=== PATIENT | female | born 1990 | race Caucasian/White ===

== ENCOUNTER 2019-12-25 16:49 | Inpatient (IN) | payer BC ==
[~2019-12-25 16:49] MED LIST: Bupivacaine 0.25% 10 ML SDV ONE
[2019-12-25] MEDS ORDERED: Ondansetron 4 MG/2 ML SDV IVPUSH PRN (19:16)
[2019-12-25] MEDS ORDERED: Lidocaine 1% 50 ML MDV INJECT ONE (19:16)
[2019-12-25] MEDS ORDERED: Sodium Chloride 0.9% 10 ML Syringe FLUSH PRN (19:16)
[2019-12-25] MEDS ORDERED: Lactated Ringers 1,000 ML ONE (19:17)
[2019-12-25] MEDS ORDERED: Oxytocin/Lactated Ringers 10 UNIT/1,000 ML BAG IV SCH ×2 (19:30)
--- NOTE | 2019-12-25 20:04 | PCM.LDHP ---
L&D History of Present Illness - General Date of Service: 12/25/19 Admit Problem/Dx: Patient Status Order with Admit Dx/Problem 12/25/19 16:58 Patient Status [ADT] Routine 12/25/19 19:17 Patient Status [ADT] Routine Admission Diagnosis/Problem Admission Diagnosis/Problem Source of Information: Patient History Limitations: Reports: No Limitations - History of Present Illness Introduction:: Qiana is a 29-year-old 2 para 0101 white female who is presently at 39- 0/7 weeks gestational age with an LUZ of 01/01/2020 is admitted to labor and delivery in early labor with cervical change and contractions occurring every 2- 4 minutes. She reports contractions started this a.m. at approximately 1000 hrs. They have increased to every 2-4 minutes, mild to moderate intensity noted. Increased cervical mucus production and feels she lost her cervical mucous plug. She is not having any vaginal bleeding, loss of vaginal fluid. She does report good activity. I evaluation clinic patients was noted to have a reactive nonstress test and a negative contraction stress test. Contractions are noted be every 2-4 minutes. They're mild in nature. Cervixwas 2 cm dilated, 90% effaced, -3 station but with head well applied to the cervix. It was mid position. In labor and delivery patient underwent artificial rupture membranes was very light meconium stained amniotic fluid. No particulate matter was noted. heart tones are very reassuring. MEDICAL PLANNER history: Patient is 2 para 0101. Patient had menarche at age 10. Cycles every 28 days. Patient reported monthly menstrual cycles with an LMP of . Her last menstrual period was the dating parameter for having occurred on 03/27/2019 and being relatively certain without any use of control pills. This was supported by 3 ultrasounds done during the course of on 08/14/2019, 09/12/2019 and on 10/04/2019. Her course was relatively unremarkable. Patient had a previous section done for severe preeclampsia. This is done at [facility] in [place]. She delivered on 12/15/2016 at 35 weeks gestational age after 8 hours of labor. She delivered a 5 lbs. 5 oz. female by primary section. done for breech presentation and initial labor was induced because of severe preeclampsia. history: Patient was initially seen for this at 10 weeks gestational age on 06/05/2019. She is seen on a regular basis during course the . Initial weight was 242 pounds and final weight was 260 pounds. This for an 18 pound weight gain. Her vital signs remained stable throughout the course. Fundal height growth was within normal limits. Patient desires an epidural. She desires a trial of labor after section for vaginal after section attempt. She is group B strep negative. She did have an induction scheduled for 01/01/2020. She declined genetic testing. Her 1 hour GTT was within normal limits at 102 mg/dL. She has a history of low transverse incision per her operative report. Patient has history of depression with her last and was on medication for that. She is also hypothyroid and is on levothyroxine placement. She has taken baby aspirin 81 mg by mouth daily during the entire . She does have some symptoms of irritable bowel syndrome. She is Rh- and did have RhoGAM given to her at her second trimester laboratory visit. laboratory testing shows blood to be a negative with a negative and by screen. First hemoglobin was 13.6 g/dL with platelets of 301,000. She is rubella immune. RPR is nonreactive. Hepatitis B surface antigen and HIV assays were both negative. Chlamydia and gonorrhea were both negative. First visit her TSH was normal at 1.6-7. Her 16 week 1 hour GTT was normal at 102 mg/dL. Her second trimester hemoglobin 11.9 g/dL. Her 1 hour GTT at second trimester was 90. Follow-up CBC on 11/21/2019 showed a hemoglobin 11.8 and platelets of 292,000. Her group B strep screen was negative.A third trimester TSH was normal at 1.651 and her free T4 was normal at 0.87. Allergies: None Medications: 1. vitamins 1 daily 2. Baby aspirin 81 mg daily 3. Levothyroxine 50 g orally daily Past medical history: 1. History of recurrent STI's 2. History of anxiety and depression on medications at that time. 3. Hypothyroidism on medications and clinically and laboratory euthyroid 4. History of irritable bowel syndrome managed well during this 5. labor and history of preeclampsia with her last . Past surgical history: 1. Partial thyroidectomy 2. Primary section with last for breech presentation Family history: Father is secondary from liver and colon cancer at age 58. Mother is alive and well. 2 brothers are alive. Maternal grandmother is alive, healthy, with hypothyroidism. Maternal grandfather , CVA at age 70. Paternal grandmother and paternal grandfather history is unknown. No anesthesia, bleeding, blood clotting, allergy related problems in the family. Social history: Patient is . 's Eric. 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 She is a college graduate. She does not use any significant most alcohol, drugs or tobacco. Review of systems: In general patient has no complaints. She is reporting some contractions but they're mild and manageable at this time. Some increased mucus discharge. Baby has been active. Skin: Negative Lungs: No infectious symptoms or shortness of breath Cardiovascular: No chest pain or exercise intolerance Breasts: Changes associated . Patient plans to breast-feed.. GI: Negative : Changes associated . Musculoskeletal: Negative Neurological: Negative In general the patient is well-developed, well-nourished, pleasant female of stated age in no acute distress. She is reporting contractions but these are not causing her any distress. Vital signs: On last evaluation in clinic today blood pressure is 134/76. Weight was 260 pounds. heart rate is 155. Pregravid weight was 242 pounds. Height is 5 feet 7 pounds. Prepregnancy body mass index is 36 Skin is warm dry without lesions. HEENT, neck and back within normal limits. Lungs are clear with good breath sounds in all lung [place]. Cardiovascular exam shows regular and rhythm without murmurs. Breast exam is deferred today have been done at first medical visit and found to be normal. Patient does plan to breast-feed. Abdomen is gravid and protuberant with fundal height of 41 cm. AB in vertex presentation by Jorge hours and by cervical exam. Genital exam as per digital exam outlined in the history present illness. Extremities and neurological exam are grossly within normal limits. - Related Data Allergies/Adverse Reactions: Allergies Allergy/AdvReac Type Severity Reaction Status Date / Time No Known Allergies Allergy Verified 12/15/16 03:34 Past Medical History Endocrine/Metabolic History: Reports: Hypothyroidism, Obesity/BMI 30+ - Past Surgical History Endocrine Surgical History: Reports: Thyroidectomy Social & Family History - Family History Oncologic: Reports: Colon (father) - Living Situation & Occupation Living situation: Reports: Occupation: Employed H&P Review of Systems - Review of Systems: Review Of Systems: See Below L&D Exam - Exam Exam: See Below - Vital Signs Vital Signs: Last Vital Signs Temp 36.8 C 12/25/19 16:58 Pulse 91 12/25/19 16:58 Resp 17 12/25/19 16:58 BP 125/84 12/25/19 16:58 Pulse Ox Weight: 115.212 kg Problem List Initiated/Reviewed/Updated: Yes Orders Last 24hrs: Active Orders 24 hr Category Date Time Status Patient Status [ADT] Routine ADT 12/25/19 16:58 Active Patient Status [ADT] Routine ADT 12/25/19 19:17 Active Activity as Tolerated [RC] PFP Care 12/25/19 19:17 Active Communication Order [RC] ASDIRECTED Care 12/25/19 19:17 Active Heart Tones [RC] ASDIRECTED Care 12/25/19 19:17 Active Non Stress Test [RC] PER UNIT ROUTINE Care 12/25/19 16:58 Active Notify Provider [RC] PFP Care 12/25/19 19:17 Active Notify Provider [RC] PRN Care 12/25/19 19:17 Active Peripheral IV Care [RC] . DIRECTED Care 12/25/19 19:17 Active Pump Management, Intrathecal [RC] ASDIRECTED Care 12/25/19 19:18 Active Up ad Sabine [RC] ASDIRECTED Care 12/25/19 16:59 Active Urinary Catheter Assessment [RC] ASDIRECTED Care 12/25/19 19:16 Active Verify Patient Consent Obtain [RC] ASDIRECTED Care 12/25/19 19:21 Active Vital Signs [RC] PER UNIT ROUTINE Care 12/25/19 16:58 Active Vital Signs [RC] PER UNIT ROUTINE Care 12/25/19 19:17 Active Regular Diet [DIET] Diet 12/25/19 Breakfast Active Regular Diet [DIET] Diet 12/25/19 Dinner Active CBC WITH AUTO DIFF [HEME] Stat Lab 12/25/19 19:16 Ordered RAPID PLASMA REAGIN,RPR [CHEM] Routine Lab 12/25/19 19:17 Ordered TYPE AND SCREEN [BBK] Stat Lab 12/25/19 19:16 Ordered Lactated Ringers [Ringers, Lactated] 1,000 ml Med 12/25/19 19:30 Active IV ASDIRECTED Ondansetron [Zofran] Med 12/25/19 19:16 Active 4 mg IVPUSH Q4H PRN Oxytocin/Lactated Ringers [Pitocin in LR 10 Units/1,000 Med 12/25/19 19:30 Active ML] 10 unit in 1,000 ml IV .CONTINUOUS Oxytocin/Lactated Ringers [Pitocin in LR 10 Units/1,000 Med 12/25/19 19:30 Active ML] 10 unit in 1,000 ml IV TITRATE Sodium Chloride 0.9% [Saline Flush] Med 12/25/19 19:16 Active 10 ml FLUSH ASDIRECTED PRN Electronic Heart Tones Ext w TOCO [WOMSER] Oth 12/25/19 19:17 Ordered Routine Electronic Heart Tones Internal [WOMSER] Per Unit Oth 12/25/19 19:17 Ordered Routine Peripheral IV Insertion Adult [OM.PC] Routine Oth 12/25/19 19:17 Ordered Resuscitation Status Routine Resus Stat 12/25/19 16:58 Ordered Medication Orders Lactated Ringer's (Ringers, Lactated) 1,000 mls @ 100 mls/hr IV ASDIRECTED RUTHANN Oxytocin/Lactated Ringer's (Pitocin In Lr 10 Units/1,000 Ml) 10 unit in 1,000 mls @ 12 mls/hr IV TITRATE RUTHANN; Protocol Oxytocin/Lactated Ringer's (Pitocin In Lr 10 Units/1,000 Ml) 10 unit in 1,000 mls @ 100 mls/hr IV .CONTINUOUS RUTHANN; Protocol Ondansetron HCl (Zofran) 4 mg IVPUSH Q4H PRN PRN Reason: Nausea/Vomiting Sodium Chloride (Saline Flush) 10 ml FLUSH ASDIRECTED PRN PRN Reason: Keep Vein Open Assessment/Plan Comment:: 1. 39-0/7 week intrauterine , early active labor, cervical change. 2. Risk factors for include history of previous severe preeclampsia, history of section and desire for tolac for , history of depression/anxiety previously on meds after delivery, hypothyroidism on medications and clinically euthyroid 3. History of low transverse section desire for an attempt at trial labor after section for vaginal after section attempt. 4. Desires epidural in labor delivery 5. Plans to breast-feed. 6. Group B strep is negative. 7. Patient is received her flu shot on 07/13/2019 and her T dap on 10/31/2019. She is rubella immune. Plan: 1. Anticipate vaginal after section with a trial of labor. 2. Precautionary measures are put in place regarding including signing consent for trial labor after section for an attempt at vaginal after section, labs, near continuous monitoring in labor, alerting both anesthesia and surgery that candidate is in labor delivery. 3. Epidural when necessary for labor analgesia 4. CBC and platelet count along with RPR upon admission per protocol 5. Support breast-feeding decision
[2019-12-25] MEDS ORDERED: fentaNYL 100 MCG/2 ML SDV EPIDUR PRN (20:22)
[2019-12-25] MEDS ORDERED: ePHEDrine 50 MG/ML SDV IVPUSH PRN (20:22)
[2019-12-25] MEDS ORDERED: diphenhydrAMINE 50 MG/ML SDV IVPUSH PRN (20:22)
[2019-12-25] MEDS ORDERED: Bupivacaine/fentaNYL/NS 100 ML Bag EPIDUR PRN (20:22)
[2019-12-25] MEDS: Lactated Ringers 1,000 ML IV SCH ×2 (20:26→21:01)
--- NOTE | 2019-12-25 20:47 | PCM.PREANE ---
Preanesthetic Assessment - Procedure Proposed Procedure: scott - Anesthesia/Transfusion/Family Hx Anesthesia History: Prior Anesthesia Without Reaction Family History of Anesthesia Reaction: No Transfusion History: No Prior Transfusion(s) - Review of Systems General: No Symptoms Pulmonary: No Symptoms Cardiovascular: No Symptoms Gastrointestinal: No Symptoms Neurological: No Symptoms Other: Reports: Thyroid Problems, Anxiety (prepreg) - Physical Assessment Vital Signs: Last Vital Signs Temp 98.2 F 12/25/19 16:58 Pulse 91 12/25/19 16:58 Resp 17 12/25/19 16:58 BP 125/84 12/25/19 16:58 Pulse Ox Height: 5 ft 7 in Weight: 115.212 kg ASA Class: 2 Mental Status: Alert & Oriented x3 Airway Class: Mallampati = 1 Dentition: Reports: Normal Dentition Thyro-Mental Finger Breadths: 3 Mouth Opening Finger Breadths: 3 ROM/Head Extension: Full Lungs: Clear to Auscultation, Normal Respiratory Effort Cardiovascular: Regular Rate, Regular Rhythm, No Murmurs - Lab Values: Laboratory Last Values WBC 12.29 K/mm3 (3.98-10.04) H 12/25/19 19:44 RBC 4.31 M/mm3 (3.98-5.22) 12/25/19 19:44 Hgb 13.1 gm/dl (11.2-15.7) 12/25/19 19:44 Hct 39.1 % (34.1-44.9) 12/25/19 19:44 MCV 90.7 fl (79.4-94.8) 12/25/19 19:44 MCH 30.4 pg (25.6-32.2) 12/25/19 19:44 MCHC 33.5 g/dl (32.2-35.5) 12/25/19 19:44 RDW Std Deviation 44.9 fL (36.4-46.3) 12/25/19 19:44 Plt Count 320 K/mm3 (182-369) 12/25/19 19:44 MPV 9.4 fl (9.4-12.3) 12/25/19 19:44 Neut % (Auto) 76.0 % (34.0-71.1) H 12/25/19 19:44 Lymph % (Auto) 14.6 % (19.3-51.7) L 12/25/19 19:44 [place] % (Auto) 8.6 % (4.7-12.5) 12/25/19 19:44 Eos % (Auto) 0.2 (0.7-5.8) L 12/25/19 19:44 Baso % (Auto) 0.1 % (0.1-1.2) 12/25/19 19:44 Neut # (Auto) 9.33 K/mm3 (1.56-6.13) H 12/25/19 19:44 Lymph # (Auto) 1.80 K/mm3 (1.18-3.74) 12/25/19 19:44 [place] # (Auto) 1.06 K/mm3 (0.24-0.36) H 12/25/19 19:44 Eos # (Auto) 0.03 K/mm3 (0.04-0.36) L 12/25/19 19:44 Baso # (Auto) 0.01 K/mm3 (0.01-0.08) 12/25/19 19:44 - Allergies Allergies/Adverse Reactions: Allergies Allergy/AdvReac Type Severity Reaction Status Date / Time No Known Allergies Allergy Verified 12/25/19 20:24 - Blood Blood Available: No - Acknowledgements Anesthesia Type Planned: Epidural Pt an Appropriate Candidate for the Planned Anesthesia: Yes Alternatives and Risks of Anesthesia Discussed w Pt/Guardian: Yes Pt/Guardian Understands and Agrees with Anesthesia Plan: Yes PreAnesthesia Questionnaire Cardiovascular History: Reports: None Respiratory History: Reports: None Gastrointestinal History: Reports: GERD (with preg) EQUIPMENT PLANNER History: Reports: : 2 Para: 1 Psychiatric History: Reports: Anxiety (prepreg) Endocrine/Metabolic History: Reports: Hypothyroidism, Obesity/BMI 30+ Hematologic History: Reports: Anemia - Past Surgical History HEENT Surgical History: Reports: Oral Surgery Endocrine Surgical History: Reports: Thyroidectomy - SUBSTANCE USE Smoking Status *Q: Never Smoker Tobacco Use Within Last Twelve Months: No Second Hand Smoke Exposure: No Days Per Week of Alcohol Use: 0 Recreational Drug Use History: No - HOME MEDS Home Medications: Home Meds Aspirin 81 mg PO DAILY 12/25/19 [History] Levothyroxine [Synthroid] 50 mcg PO ACBREAKFAST 12/25/19 [History] Vit/FA/Fe Fumarate/Se [ MTR] 1 tab PO DAILY 12/25/19 [History] - CURRENT (IN HOUSE) MEDS Current Meds: Current Medications Diphenhydramine HCl (Benadryl) 25 mg IVPUSH Q6H PRN PRN Reason: pruritis Ephedrine Sulfate (Ephedrine Sulfate) 5 mg IVPUSH ASDIRECTED PRN PRN Reason: Hypotension Fentanyl (Sublimaze) 100 mcg EPIDUR Q3H PRN PRN Reason: Pain Last Admin: 12/25/19 20:28 Dose: 100 mcg Fentanyl/Bupivacaine HCl (Fentanyl/Bupivacaine/Ns 2 Mcg-0.125% 100 Ml) 100 ml EPIDUR ASDIRECTED PRN PRN Reason: Pain Last Admin: 12/25/19 20:36 Dose: 100 ml Lactated Ringer's (Ringers, Lactated) 1,000 mls @ 100 mls/hr IV ASDIRECTED RUTHANN Last Admin: 12/25/19 20:26 Dose: 100 mls/hr Oxytocin/Lactated Ringer's (Pitocin In Lr 10 Units/1,000 Ml) 10 unit in 1,000 mls @ 12 mls/hr IV TITRATE RUTHANN; Protocol Oxytocin/Lactated Ringer's (Pitocin In Lr 10 Units/1,000 Ml) 10 unit in 1,000 mls @ 100 mls/hr IV .CONTINUOUS RUTHANN; Protocol Ondansetron HCl (Zofran) 4 mg IVPUSH Q4H PRN PRN Reason: Nausea/Vomiting Sodium Chloride (Saline Flush) 10 ml FLUSH ASDIRECTED PRN PRN Reason: Keep Vein Open Discontinued Medications Lactated Ringer's (Ringers, Lactated) Confirm Administered Dose 1,000 mls @ as directed .ROUTE .STK-MED ONE Stop: 12/25/19 19:18 Lidocaine HCl (Xylocaine 1%) 50 ml INJECT ONETIME ONE Stop: 12/25/19 19:17
[2019-12-26] MEDS: Lactated Ringers 1,000 ML IV SCH (00:49)
--- NOTE | 2019-12-26 00:57 | PCM.SN ---
- Free Text/Narrative Note: Delivery note: Qiana is a 29-year-old 2 para 0101 white female who is presently at 39- 0/7 weeks gestational age with an LUZ of 01/01/2020 is admitted to labor and delivery in early labor with cervical change and contractions occurring every 2- 4 minutes. She reports contractions started this a.m. at approximately 1000 hrs. They have increased to every 2-4 minutes, mild to moderate intensity noted. Artificial rupture membranes was undertaken and the amniotic fluid was very mildly meconium stained. heart tones were very reassuring. She progressed rapidly in labor. She had an epidural for labor analgesia. At approximately 2315 hrs. patient became completely dilated and began pushing. At 0029 hours on 12/26/2019 she delivered a viable, moul[place], female infant with Apgars of 8 and 9, a length of 21.0 inches, a weight of 3730 g (8 lbs. 4 oz.) in a right occiput posterior position. Baby was completely delivered and placed on mom's abdomen. Nose and mouth were bulb suctioned. Cord was allowed to pulsate times approximately 2-3 minutes then was clamped 2 and cut by the baby's father Eric. Pitocin was started and run at 500 mL an hour to facilitate increase uterine tone and decrease likelihood of bleeding. The placenta delivered at 0037 hours in a Martinez presentation, appeared intact and complete and was discarded per patient desire. A second-degree perineal laceration was repaired with 3-0 Monocryl suture in routine fashion. Anesthesia was adequate with the labor epidural. Patient tolerated the procedure well. Estimated blood loss was 200 mL. Condition: Good. Patient plans to breast-feed.
[2019-12-26] MEDS ORDERED: Acetaminophen 325 MG Tab PO PRN (01:43)
[2019-12-26] MEDS ORDERED: Docusate Sodium 100 MG Cap PO PRN (01:43)
[2019-12-26] MEDS ORDERED: Witch Hazel Medicated Pads 40/Jar TOP PRN (01:43)
[2019-12-26] MEDS ORDERED: Benzocaine/Menthol 20%-0.5% Spray 56 GM Canister TOP PRN (01:43)
--- NOTE | 2019-12-26 06:53 | PCM.SN ---
- Free Text/Narrative Note: note: Patient is doing well in the period. Minimal lochia, voiding well, ambulated without problems. Nursing without concerns. Patient is afebrile, vital signs are stable Abdomen is flat, soft, uterus is below the umbilicus and is firm and nontender. Legs are nontender. Assessment: recovery going well. Plan: Routine care. Patient be discharged home within the next 24-48 hours.
--- NOTE | 2019-12-26 07:41 | PCM48HPAN ---
Post Anesthesia Note - EVALUATION WITHIN 48HRS OF ANESTHETIC Vital Signs in Normal Range: Yes Patient Participated in Evaluation: Yes Respiratory Function Stable: Yes Airway Patent: Yes Cardiovascular Function Stable: Yes Hydration Status Stable: Yes Pain Control Satisfactory: Yes Nausea and Vomiting Control Satisfactory: Yes Mental Status Recovered: Yes Vital Signs: Last Vital Signs Temp 36.8 C 12/25/19 16:58 Pulse 91 12/25/19 16:58 Resp 17 12/25/19 16:58 BP 125/84 12/25/19 16:58 Pulse Ox
[2019-12-26] MEDS: Levothyroxine 50 MCG Tab PO SCH (07:43)
[2019-12-26] MEDS: Ibuprofen 600 MG Tab PO PRN (12:32)
[2019-12-27] MEDS: Levothyroxine 50 MCG Tab PO SCH (06:39)
--- NOTE | 2019-12-27 08:27 | PCM.SN ---
- Free Text/Narrative Note: day #1.: Patient is doing well in the period. Minimal lochia, voiding well, ambulated without problems. Nursing without concerns. Patient is afebrile, vital signs are stable Abdomen is flat, soft, uterus is below the umbilicus and is firm and nontender. uterus is at the umbilicus or just below. Legs are nontender. Assessment: recovery going well. Plan: Routine care. Patient be discharged home within the next 24-48 hours.
[2019-12-27 10:07] VITALS: BP 119/73; PULSE 77
--- NOTE | 2019-12-27 12:37 | PCM.DCSUM1 ---
Discharge Summary - Hospital Course Free Text/Narrative:: Qiana is a 29-year-old 2 para 0101 white female who is presently at 39- 0/7 weeks gestational age with an LUZ of 01/01/2021 is admitted to labor and delivery in early labor with cervical change and contractions occurring every 2- 4 minutes. She reports contractions started this a.m. at approximately 1000 hrs. They have increased to every 2-4 minutes, mild to moderate intensity noted. Artificial rupture membranes was undertaken and the amniotic fluid was very mildly meconium stained. heart tones were very reassuring. She progressed rapidly in labor. She had an epidural for labor analgesia. At approximately 2315 hrs. patient became completely dilated and began pushing. At 0029 hours on 12/26/2019 she delivered a viable, moulton, female infant with Apgars of 8 and 9, a length of 21.0 inches, a weight of 3730 g (8 lbs. 4 oz.) in a right occiput posterior position. Baby was completely delivered and placed on mom's abdomen. Nose and mouth were bulb suctioned. Cord was allowed to pulsate times approximately 2-3 minutes then was clamped 2 and cut by the baby's father Eric. Pitocin was started and run at 500 mL an hour to facilitate increase uterine tone and decrease likelihood of bleeding. The placenta delivered at 0037 hours in a Martinez presentation, appeared intact and complete and was discarded per patient desire. A second-degree perineal laceration was repaired with 3-0 Monocryl suture in routine fashion. Anesthesia was adequate with the labor epidural. Patient tolerated the procedure well. Estimated blood loss was 200 mL. patient was done well. She is ambulating well, has minimal lochia, is nursing well and voiding without problems. Is ready for discharge home. Condition: Good. Diagnosis: Stroke: No - Discharge Data Discharge Date: 12/27/19 Discharge Disposition: Home, Self-Care 01 Condition: Good - Referral to Home Health Primary Care Physician: Baldev Otto MD - Patient Instructions Diet: Regular Diet as Tolerated (Nursing diet with increased calories and calcium as recommended) Activity: As Tolerated (No intercourse or tampons until bleeding resolves) Driving: May Drive Today Showering/Bathing: May Shower (May take a bath) Notify Provider of: Fever, Increased Pain, Swelling and Redness, Nausea and/or Vomiting - Discharge Plan Home Medications: Home Meds Levothyroxine [Synthroid] 50 mcg PO ACBREAKFAST 12/25/19 [History] Vit/FA/Fe Fumarate/Se [ MTR] 1 tab PO DAILY 12/25/19 [History] Acetaminophen [Tylenol] 650 mg PO Q4H PRN tablet 12/27/19 [Rx] Ibuprofen [Motrin] 600 mg PO Q4H PRN tablet 12/27/19 [Rx] Referrals: Baldev Otto MD [Primary Care Provider] - (Return to clinicDr. Otto2 weeks.) - Discharge Summary/Plan Comment DC Time >30 min.: No Discharge Summary/Plan Comment: Discharge instructions: 1. Discharge home 2. Diet, activity and follow-up discussed with patient. Recommend nursing diet with increased calories and calcium. 3. Precautions given concern increased pain, bleeding, temperature, signs/ symptoms of DVT/PE. 4. Medications per home medication was printed, discussed with and given to the patient. 5. Return to clinic-Dr. Otto or Symone stoll, nurse practitioner-[facility] in 2 weeks. Diagnosis: Term [id number] Condition: Good - Patient Data Vitals - Most Recent: Last Vital Signs Temp 37.1 C 12/27/19 08:48 Pulse 77 12/27/19 08:48 Resp 18 12/27/19 08:48 BP 119/73 12/27/19 08:48 Pulse Ox 97 12/27/19 08:48 Weight - Most Recent: 115.212 kg I&O - Last 24 hours: Intake & Output 12/26/19 12/27/19 12/27/19 22:59 06:59 14:59 Intake Total 120 Balance 120 Lab Results - Last 24 hrs: Laboratory Results - last 24 hr 12/25/19 Range/Units 19:44 RPR Non-reactive (NONREACTIVE) Med Orders - Current: Current Medications Acetaminophen (Tylenol) 650 mg PO Q4H PRN PRN Reason: mild pain or fever Benzocaine/Menthol (Dermoplast Pain Relief [place]) 0 gm TOP ASDIRECTED PRN PRN Reason: Perineal Comfort Measure Last Admin: 12/26/19 02:00 Dose: 1 can Docusate Sodium (Colace) 100 mg PO BID PRN PRN Reason: Constipation Ibuprofen (Motrin) 600 mg PO Q4H PRN PRN Reason: Mild pain or fever Last Admin: 12/26/19 12:32 Dose: 600 mg Levothyroxine Sodium (Synthroid) 50 mcg PO ACBREAKFAST RUTHANN Last Admin: 12/27/19 06:39 Dose: 50 mcg Witch Susan (Tucks) 1 pad TOP ASDIRECTED PRN PRN Reason: Pain Last Admin: 12/26/19 02:00 Dose: 1 tub Discontinued Medications Bupivacaine HCl (Sensorcaine-Mpf 0.25%) 10 ml .ROUTE .STK-MED ONE Stop: 12/25/19 00:01 Diphenhydramine HCl (Benadryl) 25 mg IVPUSH Q6H PRN PRN Reason: pruritis Ephedrine Sulfate (Ephedrine Sulfate) 5 mg IVPUSH ASDIRECTED PRN PRN Reason: Hypotension Fentanyl (Sublimaze) 100 mcg EPIDUR Q3H PRN PRN Reason: Pain Last Admin: 12/25/19 20:28 Dose: 100 mcg Fentanyl/Bupivacaine HCl (Fentanyl/Bupivacaine/Ns 2 Mcg-0.125% 100 Ml) 100 ml EPIDUR ASDIRECTED PRN PRN Reason: Pain Last Admin: 12/25/19 20:36 Dose: 100 ml Lactated Ringer's (Ringers, Lactated) Confirm Administered Dose 1,000 mls @ as directed .ROUTE .STK-MED ONE Stop: 12/25/19 19:18 Lactated Ringer's (Ringers, Lactated) 1,000 mls @ 100 mls/hr IV ASDIRECTED RUTHANN Last Admin: 12/26/19 00:49 Dose: 100 mls/hr Oxytocin/Lactated Ringer's (Pitocin In Lr 10 Units/1,000 Ml) 10 unit in 1,000 mls @ 12 mls/hr IV TITRATE RUTHANN; Protocol Oxytocin/Lactated Ringer's (Pitocin In Lr 10 Units/1,000 Ml) 10 unit in 1,000 mls @ 100 mls/hr IV .CONTINUOUS RUTHANN; Protocol Last Admin: 12/26/19 00:49 Dose: 500 mls/hr Lidocaine HCl (Xylocaine 1%) 50 ml INJECT ONETIME ONE Stop: 12/25/19 19:17 Ondansetron HCl (Zofran) 4 mg IVPUSH Q4H PRN PRN Reason: Nausea/Vomiting Sodium Chloride (Saline Flush) 10 ml FLUSH ASDIRECTED PRN PRN Reason: Keep Vein Open
[2019-12-27] MEDS: Ibuprofen 600 MG Tab PO PRN (13:28)
== END 2019-12-27 15:00 | disposition home or self-care (01) | DRG 560 ==
LOC: JD.OBCHECK 16:49 → JD.OB 16:49 → JD.OBCHECK 19:17 → JD.OB 20:25 → OBSVTOIN 12-26 00:29 → JD.OB 12-26 00:30
PROVIDERS: ADMIT Obstetrics & Gynecology; ATTEND Obstetrics & Gynecology
PROC: 3E0R3BZ Introduction of Anesthetic Agent into Spinal Canal, Percutaneous Approach (ICD-10-PCS; principal; 2019-12-26)
PROC: 10E0XZZ Delivery of Products of Conception, External Approach (ICD-10-PCS; 2019-12-26)
PROC: 0KQM0ZZ Repair Perineum Muscle, Open Approach (ICD-10-PCS; 2019-12-26)
DX: O77.0 Labor and delivery complicated by meconium in amniotic fluid (principal); O99.284 Endocrine, nutritional and metabolic diseases complicating childbirth; O70.1 Second degree perineal laceration during delivery; E03.9 Hypothyroidism, unspecified; Z3A.39 39 weeks gestation of pregnancy; Z37.0 Single live birth; Z79.899 Other long term (current) drug therapy; Z79.82 Long term (current) use of aspirin; Z90.89 Acquired absence of other organs
CPT/HCPCS: 36415; 51702; 59025; 59409; 85025; 86592; 86850; 86900; 86901; A9270-GY; J2590; J3010; J3490; J7120

== ENCOUNTER 2021-05-31 08:44 | Emergency (ER) | payer BC ==
[2021-05-31] MEDS ORDERED: Fluorescein 1 MG Ophth Strip EYERT ONE (08:54)
[2021-05-31] MEDS ORDERED: Proparacaine 0.5% Ophth Soln 15 ML Bottle EYERT ONE (08:54)
[2021-05-31 08:57] VITALS: BP 139/80; PULSE 87
[2021-05-31] MEDS ORDERED: Ciprofloxacin 0.3% Ophth Soln 5 ML Bottle EYERT ONE (09:00)
[2021-05-31] MEDS ORDERED: Ketorolac 0.5% Ophth Soln 5 ML Bottle EYERT ONE (09:00)
--- NOTE | 2021-05-31 09:04 | EDM.PDOC ---
ED HPI GENERAL MEDICAL PROBLEM - General Chief Complaint: Eye Problems Stated Complaint: R EYE INJURY Time Seen by Provider: 05/31/21 08:50 Source of Information: Reports: Patient, Family (spouse) History Limitations: Reports: No Limitations - History of Present Illness INITIAL COMMENTS - FREE TEXT/NARRATIVE: 31-year-old female presents to the ED with foreign body sensation right eye after being accidentally pulled by her infant in the right eyebrow 0100 hrs. this morning. Since that time she has had foreign body sensation up underneath her right lateral eyelid with excessive tearing and severe photophobia right eye. She does not wear eyeglasses or contact lenses. Onset: Today, Sudden Onset Date: 05/31/21 Onset Time: 01:00 Duration: Hour(s):, Constant, Getting Worse Location: Reports: Face (Right eye pain with foreign body sensation after being accidentally poked in the eye by her ) Quality: Reports: Ache, Burning, Stabbing Severity: Moderate (Very sensitive to light.) Improves with: Reports: Rest Worsens with: Reports: Other (Composure to sunlight.) Context: Reports: Trauma (Accidental trauma to the right eye after being poked by her .). 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.) Right Eye Pain Score (Numeric/FACES): 7 - Related Data Allergies Allergy/AdvReac Type Severity Reaction Status Date / Time No Known Allergies Allergy Verified 12/25/19 20:24 Home Meds: Home Meds Levothyroxine [Synthroid] 50 mcg PO ACBREAKFAST 12/25/19 [History] Vit/FA/Fe Fumarate/Se [ MTR] 1 tab PO DAILY 12/25/19 [History] Past Medical History Cardiovascular History: Reports: None Respiratory History: Reports: None Gastrointestinal History: Reports: GERD (with preg) 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: Psychiatric History: Reports: Anxiety (prepreg) Endocrine/Metabolic History: Reports: Hypothyroidism (On levothyroxine), Obesity/BMI 30+ Hematologic History: Reports: Anemia - Past Surgical History HEENT Surgical History: Reports: Oral Surgery Endocrine Surgical History: Reports: Thyroidectomy Social & Family History - Family History Family Medical History: No Pertinent Family History Oncologic: Reports: Colon (father) - Tobacco Use Tobacco Use Status *Q: Never Tobacco User - Caffeine Use Caffeine Use: Reports: None - Recreational Drug Use Recreational Drug Use: No - Living Situation & Occupation Living situation: Reports: Occupation: Employed ED ROS GENERAL - Review of Systems Review Of Systems: See Below Constitutional: Reports: No Symptoms HEENT: Reports: Eye Discharge, Eye Pain (Excessive tearing right eye pain with foreign body sensation up underneath her right lateral eyelid after being poked in the eye by her early this morning). Denies: Contact Lenses, Glasses Respiratory: Reports: No Symptoms Cardiovascular: Reports: No Symptoms Endocrine: Reports: No Symptoms GI/Abdominal: Reports: No Symptoms : Reports: No Symptoms Musculoskeletal: Reports: No Symptoms Skin: Reports: No Symptoms Neurological: Reports: No Symptoms Psychiatric: Reports: No Symptoms Hematologic/Lymphatic: Reports: No Symptoms Immunologic: Reports: No Symptoms ED EXAM GENERAL W FULL EYE - Physical Exam Exam: See Below Exam Limited By: No Limitations General Appearance: Alert, WD/WN, Moderate Distress, Other (Can not keep her eye open due to severe pain with light exposure. Temperature was 36.2 with a heart rate of 87 in sinus respiratory 16 with O2 sats of 98% room air BP 139/80.) Eye Exam: Right Eye: Conjunctival Injection (Mild conjunctival injection), Corneal Abrasion (Corneal abrasion visible with visor at the 10 o'clock position. Further explored with slit-lamp exam reveals a lightening bolt deep scratch from 10:00 to 7 o'clock position in a vertical fashion), Bilateral Eye: PERRL With Correction: No Eyelids: Right: Normal Appearance, Erythema (Mild), Lid Everted for Exam (No foreign body identified) Conjunctiva & Sclera: Right: Conjunctival Edema (Mildly injected) Cornea Exam: Right: Corneal Abrasion (Lightening bolt-like corneal abrasion from 10:00 to 7 o'clock position in a vertical fashion) Extraocular Movements: Bilateral: Intact Pupils: Normal Accommodation Pupillary Size: Bilateral: 5 mm Pupillary Reaction: Bilateral: Brisk Anterior Chamber: Right: Normal Appearance Course - Vital Signs Last Recorded V/S: Last Vital Signs Temp 36.2 C 05/31/21 08:54 Pulse 87 05/31/21 08:54 Resp 16 05/31/21 08:54 BP 139/80 05/31/21 08:54 Pulse Ox 98 05/31/21 08:54 - Orders/Labs/Meds Meds: Medications Discontinued Medications Generic Name Dose Route Start Last Admin Trade Name Oscar PRMini Reason Stop Dose Admin Ciprofloxacin 2.5 ml 05/31/21 09:00 Ciprofloxacin 0.3% Ophth Soln 5 Ml Bottle EYERT 05/31/21 09:01 ONETIME ONE Fluorescein Sodium 1 mg 05/31/21 08:54 Fluorescein 1 Mg Ophth Strip EYERT 05/31/21 08:55 ONETIME ONE Ketorolac Tromethamine 0 ml 05/31/21 09:00 Ketorolac 0.5% Ophth Soln 5 Ml Bottle EYERT 05/31/21 09:01 ONETIME ONE Proparacaine HCl 1 ml 05/31/21 08:54 Proparacaine 0.5% Ophth Soln 15 Ml Bottle EYERT 05/31/21 08:55 ONETIME ONE - Radiology Interpretation Free Text/Narrative:: 31-year-old female presents to the ED with foreign body sensation right eye since being accidentally poked in the right eye by her infant early this morning around 0100 hrs. She does not wear contact lenses or glasses. She cannot keep her eye open due to his light sensitivity. Has excessive tearing and constant burning pain. Evaluation reveals a lightening bolt vertical corneal abrasion from the 10:00 to 7 o'clock position about 4 mm from the limbus. Note patient did get full relief with topical proparacaine eyedrops. She will be treated with ketorolac eyedrops 2 drops to the right eye every 6 hours as needed for pain relief. Cipro ophthalmic drops 2 drops every 8 hours or 3 times daily for the next 3 days to prevent secondary wound infection since the abrasion is fairly deep on slit-lamp exam. She will also keep the eye double patched closed today and take the patch off tomorrow morning. She will take the patch off the eye intermittently to place eyedrops. Follow-up indicated if not back to normal in 36 hours time Departure - Departure Time of Disposition: 09:02 Disposition: Home, Self-Care 01 Condition: Fair Clinical Impression: Corneal abrasion Abrasion of right cornea Qualifiers: Encounter type: initial encounter Qualified Code(s): S05.01XA - Injury of conjunctiva and corneal abrasion without foreign body, right eye, initial encounter - Discharge Information *PRESCRIPTION DRUG MONITORING PROGRAM REVIEWED*: Not Applicable *COPY OF PRESCRIPTION DRUG MONITORING REPORT IN PATIENT MAMI: Not Applicable Referrals: Kamryn Lemus MD [Primary Care Provider] - Forms: ED Department Discharge Additional Instructions: Evaluation in the emergency room this morning in regards to severe pain right eye after being accidentally poked in the eye by your infant. This occurred around 0100 hrs. this morning. Slit-lamp examination reveals a superficial corneal abrasion traveling from 10:00 to 7 o'clock position in a downward fashion. Treatment is ketorolac drops 2 drops to the right eye every 6 hours as needed for pain relief. Usually will only need this for 1 day. Second drop is antibiotic ciprofloxacin made for the eye. 2 drops to the right eye 3 times daily for the next 3 days to prevent secondary infection. Double patch the right eye closed until tomorrow morning. Remove it only to put drops in and then replaced the patch. Expect the eye to beat sensitive to light for another 24 hours after patch is off tomorrow morning. May need sunglasses etc. Expect completely return to normal within 36 hours. If not you should be reviewed Sepsis Event Note (ED) - Evaluation Sepsis Screening Result: No Definite Risk - Focused Exam Vital Signs: Vital Signs Temp Pulse Resp BP Pulse Ox 05/31/21 08:54 36.2 C 87 16 139/80 98
== END 2021-05-31 09:10 | disposition home or self-care (01) ==
LOC: JD.ED 08:44
DX: S05.01XA Injury of conjunctiva and corneal abrasion without foreign body, right eye, initial encounter (principal); E03.9 Hypothyroidism, unspecified; E66.9 Obesity, unspecified; Z79.899 Other long term (current) drug therapy; X58.XXXA Exposure to other specified factors, initial encounter
CPT/HCPCS: 99283; A9270

== ENCOUNTER 2024-04-26 10:33 | Inpatient (IN) | payer BC ==
[2024-04-26] MEDS ORDERED: EPINEPHrine 1 MG/ML SDV ONE (11:08)
[2024-04-26] MEDS: Lactated Ringers 1,000 ML IV SCH (11:13)
[2024-04-26] MEDS ORDERED: Propofol 200 MG/20 ML SDV ONE ×2 (11:23→13:43)
[2024-04-26] MEDS ORDERED: Ketorolac 30 MG/ML SDV ONE (11:24)
[2024-04-26] MEDS ORDERED: ceFAZolin 2 GM Vial ONE (11:24)
[2024-04-26] MEDS ORDERED: fentaNYL 250 MCG/5 ML SDV ONE (11:24)
[2024-04-26] MEDS ORDERED: Rocuronium 50 MG/5 ML Vial ONE ×2 (11:24→13:37)
[2024-04-26] MEDS: Midazolam 1 MG/ML 2 ML SDV IVPUSH ONE (11:45)
[2024-04-26] MEDS: Ondansetron 8 MG in Sodium Chloride 0.9% 50 ML IV ONE (11:45)
[2024-04-26] MEDS ORDERED: HYDROmorphone 0.5 MG/0.5 ML Syringe ONE ×2 (13:03→14:23)
[2024-04-26] MEDS: Ropivacaine 0.5% 5 MG/ML 30 ML SDV ONE (13:48)
[2024-04-26] MEDS: Lidocaine 2% 20 ML MDV ONE (13:48)
[2024-04-26] MEDS ORDERED: Metoprolol Tartrate 5 MG/5 ML SDV ONE (14:00)
[2024-04-26] MEDS ORDERED: fentaNYL 100 MCG/2 ML SDV ONE (15:09)
[2024-04-26] MEDS ORDERED: Lactated Ringers 1,000 ML IV ONE (15:09)
[2024-04-26] MEDS ORDERED: Sugammadex Sodium 200 MG/2 ML VIAL IV ONE (15:15)
[2024-04-26] MEDS ORDERED: HYDROmorphone 0.5 MG/0.5 ML Syringe IVPUSH PRN ×2 (15:35→16:04)
[2024-04-26] MEDS ORDERED: Sodium Chloride 0.9% 10 ML Syringe FLUSH PRN ×2 (15:55→15:56)
[2024-04-26] MEDS ORDERED: Acetaminophen 325 MG/10.15 ML PO PRN (16:02)
[2024-04-26] MEDS: Dexamethasone 4 MG/ML SDV IVPUSH PRN (16:14)
[2024-04-26] MEDS: fentaNYL 100 MCG/2 ML SDV IVPUSH PRN (16:16)
[2024-04-26] MEDS: Ketorolac 30 MG/ML SDV IVPUSH PRN (17:19)
[2024-04-26] MEDS: Heparin Sodium 5,000 Units/ML Vial SUBCUT SCH (17:21)
[2024-04-26] MEDS: Pantoprazole 40 MG Tab.CR PO SCH (17:21)
[2024-04-26] MEDS: Sertraline 50 MG Tab PO SCH (17:21)
[2024-04-26] MEDS: Piperacillin/Tazobactam 4.5 GM in Sodium Chloride 0.9% 100 ML IV ONE (17:21)
[2024-04-26] MEDS: Sodium Chloride 0.9% 1,000 ML IV SCH (17:23)
[2024-04-26] MEDS: Piperacillin/Tazobactam 4.5 GM in Sodium Chloride 0.9% 100 ML IV SCH (17:43)
[2024-04-26] MEDS: Sodium Chloride 0.9% 10 ML Syringe FLUSH SCH (22:15)
[2024-04-27 04:50] LABS: BASOPHILS PERCENT AUTO 0.2 % (0.0-1.0); HEMATOCRIT 37.1 % (37.0-47.0); HEMOGLOBIN 12.4 gm/dl (12.0-16.0); IMMATURE GRAN ABSOLUTE AUTO 0.01 K/mm3 (0.00-0.05); IMMATURE GRAN PERCENT AUTO 0.2 % (0.0-0.4); LYMPHOCYTES ABSOLUTE AUTO 1.4 K/mm3 (1.0-4.8); LYMPHOCYTES PERCENT AUTO 22.3 % (24.0-44.0); MEAN CORPUSCULAR HEMOGLOBIN 30.1 pg (28.0-32.0); MEAN CORPUSCULAR HGB CONC 33.4 g/dl (32.0-36.0); MEAN PLATELET VOLUME 9.4 fl (9.4-12.3); MONOCYTES ABSOLUTE AUTO 0.6 K/mm3 (0.0-0.8); MONOCYTES PERCENT AUTO 9.2 % (0.0-8.0); NEUTROPHILS ABSOLUTE AUTO 4.2 K/mm3 (1.8-7.7); NEUTROPHILS PERCENT AUTO 68.1 % (41.0-71.0); PLATELET COUNT,PLT 227 K/mm3 (150-400); RED BLOOD CELL COUNT 4.12 M/mm3 (4.10-5.30)
[2024-04-27] MEDS: Levothyroxine 50 MCG Tab PO SCH (05:05)
[2024-04-27 05:24] LABS: ANION GAP 13.9 (5-15); BILIRUBIN DIRECT 0.2 mg/dl (0.0-0.2); BILIRUBIN TOTAL 0.8 mg/dL (0.2-1.0); BUN/CREATININE RATIO 11.7 (14-18); CALCIUM 8.3 mg/dL (8.5-10.1); CREATININE 0.6 mg/dL (0.55-1.02); EST CRCL DRUG DOSING (CG) 122.51 mL/min; MAGNESIUM 1.7 mg/dL (1.8-2.4); PHOSPHORUS 3.2 mg/dL (2.6-4.7); POTASSIUM,K 3.9 mEq/L (3.5-5.1)
[2024-04-27 08:37] VITALS: PULSE 73
[2024-04-27] MEDS: Sodium Chloride 0.9% 1,000 ML IV SCH (10:22)
[2024-04-27 12:14] VITALS: BP 105/75
== END 2024-04-27 13:20 | disposition home or self-care (01) | DRG 263 ==
LOC: JD.SDS 10:33 → JD.MS 15:49
PROVIDERS: ADMIT Family Medicine; ATTEND Family Medicine
PROC: 0FT44ZZ Resection of Gallbladder, Percutaneous Endoscopic Approach (ICD-10-PCS; principal; 2024-04-26 12:00)
DX: K80.01 Calculus of gallbladder with acute cholecystitis with obstruction (principal); Z68.41 Body mass index [BMI] 40.0-44.9, adult; I10 Essential (primary) hypertension; F41.9 Anxiety disorder, unspecified; E03.9 Hypothyroidism, unspecified; E66.9 Obesity, unspecified; K21.9 Gastro-esophageal reflux disease without esophagitis; F32.A Depression, unspecified; Z79.890 Hormone replacement therapy; Z98.890 Other specified postprocedural states
CPT/HCPCS: 36415; 80048; 82247; 82248; 83735; 84100; 85025; 94760; 94761; A9270-GY; J0171; J0690; J1100; J1170; J1644; J1885; J2001; J2250; J2405; J2543; J2704; J2795; J3010; J3490; J7030; J7120